=== PATIENT | female | born 1945 | race Caucasian/White ===

== ENCOUNTER → 2016-04-29 | Day surgery (SDC) | payer MEDICARE ==
[~2016-04-29] VITALS: Ht 165.1 cm; Wt 102.1 kg
[~2016-04-29] MED LIST: ACETAMINOPHEN 325 MG TAB PO PRN; AcetaZOLAMIDE 500 MG ER CAP PO ONE; BACL10TA2 PO; BSS with VANC/TOB/EPI for EYE CASES IR ONE; CYCLOPENTOLATE 2% OPHTH SOLN XX ONE; FISH1000 PO; HEALON DUET (HEALON 10MG/ML 0.55ML & HEALON ENDOCOAT 30MG/ML 0.85ML) As Ordered ONE; HEALON DUET (HEALON 10MG/ML 0.55ML & HEALON ENDOCOAT 30MG/ML 0.85ML) XX ONE; LASI20TA PO; LIDO5DIS36 TD; LIDOCAINE 1% SDV 5 ML VIAL As Ordered ONE; LIDOCAINE 1% SDV 5 ML VIAL XX ONE; LIDOCAINE 4% INJ 5 ML AMP OU ONE; LORA-376 PO; MELO15TA4 PO; MIDAZOLAM INJ 2 MG/2 ML VIAL (J2250) As Ordered ONE; MOXIFLOXACIN IN BSS 0.25MG/0.25ML INTRACAMERAL INJ (OR EYE ONLY)(J2280) As Ordered ONE; MOXIFLOXACIN IN BSS 0.25MG/0.25ML INTRACAMERAL INJ (OR EYE ONLY)(J2280) ICAM ONE; OCUVCAP2 PO; OFLOXACIN 0.3 % (OCUFLOX) OPTH SOL 5ML XX ONE; PHENYLEPHRINE 2.5% OPHTH SOL 2ML XX ONE; PLEG15IN SC; POVIDONE-IODINE 5% OPHTH PREP SOL 30ML As Ordered ONE; PROPARACAINE 0.5% OPHTH SOL 15ML OD PRN; TRIAMCINOLONE PRES FR 40 MG/ML 1ML(TRIESENCE)(OR EYE ONLY)(J3300 PER 1MG) As Ordered ONE; TRIAMCINOLONE PRES FR 40 MG/ML 1ML(TRIESENCE)(OR EYE ONLY)(J3300 PER 1MG) IO ONE; TRIMETHOBENZAMIDE 300 MG CAP PO PRN; TROPICAMIDE 1% OPHTH SOLN 2 ML XX ONE; VITA100037 PO; fentaNYL 100 MCG/2 ML INJECTION (J3010) As Ordered ONE
--- NOTE | 2016-04-29 13:31 | REP ---
DATE OF PROCEDURE: 04/29/2016 PREPROCEDURE DIAGNOSIS: Cataract in the right eye. POSTPROCEDURE DIAGNOSIS: Cataract in the right eye. PROCEDURE: Femtosecond laser and phacoemulsification of the intraocular lens with lens implantation right eye. Intraocular lens power used was PCB00, power 14.5 diopter. SURGEON: Natasha Mcneal MD HOUSEKEEPING WORKER: None. ANESTHESIA: Local IV standby. FINDINGS: Cataract of right eye. COMPLICATIONS: None. DESCRIPTION OF PROCEDURE: The patient was brought to the operating room and laid in supine position. A lid speculum was placed, and patient was brought under the femtosecond laser. After the satisfactory placement of the patient interface, primary incision, secondary incision, and arcuate incisions with lens fragmentation was done without any complication per plan. The patients interface was then removed and lid speculum removed. Patient was placed under the microscope. The eye was prepped and draped in a sterile fashion for ophthalmic surgery. Lid speculum was placed. The secondary incision was opened, and EndoCoat was injected into the anterior chamber. The temporal clear corneal incision was then opened and capsulorrhexis removed, followed by hydrodissection. This was followed by phacoemulsification of the lens within the capsular bag. Cortical material was then aspirated, and Healon was injected into the capsular bag. Intraocular lens was then placed. Excess Healon was aspirated. Wound was hydrated. The lid speculum was removed, and patient was returned to the recovery room in stable condition.
[2016-04-29 14:05] VITALS: BP 168/90
== END | disposition home or self-care (01) ==
LOC: M SDC 11:40
PROVIDERS: ATTEND Ophthalmology
DX: H26.9 Unspecified cataract (principal); I10 Essential (primary) hypertension; G47.30 Sleep apnea, unspecified; G35 Multiple sclerosis; Z79.899 Other long term (current) drug therapy
CPT/HCPCS: 66984; J2250; J2280; J3010; J3300; V2632

== ENCOUNTER 2017-07-13 17:00 | Emergency (ER) | payer MEDICARE ==
[2017-07-13 17:44] LABS: BASO % 0.1 % (0.0-1.0); EOS % 0.4 % (0.0-3.0); HEMATOCRIT 39.8 % (36.0-47.0); HEMOGLOBIN 13.1 g/dl (12.0-15.5); IMMATURE GRANULOCYTE % 0.4 % (0-3.0); LYMPH # 0.7 10^3/uL (1.5-4.5); LYMPH % 7.8 % (24.0-44.0); MEAN CORPUSCULAR HEMOGLOBIN 29.8 pg (27.0-33.0); MEAN CORPUSCULAR HGB CONC 32.9 g/dl (32.0-36.5); MEAN CORPUSCULAR VOLUME 90.5 fl (80.0-96.0); MONO # 0.8 10^3/uL (0.0-0.8); MONO % 9.1 % (0.0-5.0); NEUTROPHILS # 7.4 10^3/uL (1.8-7.7); NEUTROPHILS % 82.2 % (36.0-66.0); PLATELET COUNT, AUTOMATED 211 10^3/uL (150-450)
[2017-07-13] MEDS: NS 1,000 ML IV (17:46)
[2017-07-13] MEDS: GI COCKTAIL 50ML BTL(HYOSCYAMINE/MAALOX/LIDOCAINE VISCOUS)(1:3:1) PO (17:46)
[2017-07-13 17:54] LABS: INR 1.49; PROTHROMBIN TIME 18.4 SECONDS (12.4-14.5)
[2017-07-13 18:12] LABS: ALBUMIN 3.6 GM/DL (3.2-5.2); ALBUMIN/GLOBULIN RATIO 1.33 (1.00-1.93); ALT/SGPT 15 U/L (12-78); ANION GAP 8 MEQ/L (8-16); AST/SGOT 8 U/L (7-37); BILIRUBIN,DIRECT 0.2 MG/DL (0.0-0.2); BILIRUBIN,TOTAL 0.6 MG/DL (0.2-1.0); BLOOD UREA NITROGEN 22 MG/DL (7-18); CALCIUM LEVEL 8.7 MG/DL (8.8-10.2); CARBON DIOXIDE LEVEL 29 MEQ/L (21-32); CHLORIDE LEVEL 107 MEQ/L (98-107); CPK CREATINE PHOSPHOKINASE 27 U/L (26-192); CREATININE FOR GFR 0.67 MG/DL (0.55-1.30); GLOMERULAR FILTRATION RATE > 60.0 (>39); GLUCOSE, FASTING 121 MG/DL (70-100); POTASSIUM SERUM 3.8 MEQ/L (3.5-5.1); SODIUM LEVEL 144 MEQ/L (136-145); TOTAL PROTEIN 6.3 GM/DL (6.4-8.2); TROPONIN I < 0.02 NG/ML (< 0.10)
[2017-07-13 18:23] LABS: ALKALINE PHOSPHATASE 85 U/L (45-117); CK-MB VALUE MASS < 1.0 NG/ML (<3.6); NT-PRO BNP 1784 PG/ML (<125)
== END 2017-07-13 19:22 | disposition home or self-care (01) ==
LOC: M ED 17:00
DX: K21.0 Gastro-esophageal reflux disease with esophagitis (principal); R00.0 Tachycardia, unspecified; I10 Essential (primary) hypertension; I48.91 Unspecified atrial fibrillation; E78.5 Hyperlipidemia, unspecified; Z87.891 Personal history of nicotine dependence; Z88.6 Allergy status to analgesic agent; Z79.899 Other long term (current) drug therapy; Z79.01 Long term (current) use of anticoagulants
CPT/HCPCS: 71045

== ENCOUNTER → 2020-01-20 | Outpatient (CLI) | payer MEDICARE ==
[~2020-01-20] MED LIST changes: -ACETAMINOPHEN 325 MG TAB PO PRN; -AcetaZOLAMIDE 500 MG ER CAP PO ONE; -BSS with VANC/TOB/EPI for EYE CASES IR ONE; -CYCLOPENTOLATE 2% OPHTH SOLN XX ONE; +DILT180C78 PO; -HEALON DUET (HEALON 10MG/ML 0.55ML & HEALON ENDOCOAT 30MG/ML 0.85ML) As Ordered ONE; -HEALON DUET (HEALON 10MG/ML 0.55ML & HEALON ENDOCOAT 30MG/ML 0.85ML) XX ONE; -LASI20TA PO; +LASI20TA3 PO; -LIDO5DIS36 TD; +LIDO5DIS41 TD; -LIDOCAINE 1% SDV 5 ML VIAL As Ordered ONE; -LIDOCAINE 1% SDV 5 ML VIAL XX ONE; -LIDOCAINE 4% INJ 5 ML AMP OU ONE; -LORA-376 PO; +LORA0.5T5 PO; +MELO15TA28 PO; -MELO15TA4 PO; -MIDAZOLAM INJ 2 MG/2 ML VIAL (J2250) As Ordered ONE; -MOXIFLOXACIN IN BSS 0.25MG/0.25ML INTRACAMERAL INJ (OR EYE ONLY)(J2280) As Ordered ONE; -MOXIFLOXACIN IN BSS 0.25MG/0.25ML INTRACAMERAL INJ (OR EYE ONLY)(J2280) ICAM ONE; -OFLOXACIN 0.3 % (OCUFLOX) OPTH SOL 5ML XX ONE; -PHENYLEPHRINE 2.5% OPHTH SOL 2ML XX ONE; -POVIDONE-IODINE 5% OPHTH PREP SOL 30ML As Ordered ONE; +PRESCAP6 PO; -PROPARACAINE 0.5% OPHTH SOL 15ML OD PRN; -TRIAMCINOLONE PRES FR 40 MG/ML 1ML(TRIESENCE)(OR EYE ONLY)(J3300 PER 1MG) As Ordered ONE; -TRIAMCINOLONE PRES FR 40 MG/ML 1ML(TRIESENCE)(OR EYE ONLY)(J3300 PER 1MG) IO ONE; -TRIMETHOBENZAMIDE 300 MG CAP PO PRN; -TROPICAMIDE 1% OPHTH SOLN 2 ML XX ONE; -VITA100037 PO; +VITA100067 PO; +XARE20TA PO; -fentaNYL 100 MCG/2 ML INJECTION (J3010) As Ordered ONE
[2020-01-20 15:33] LABS: BASO % 0.5 % (0.0-1.0); EOS # 0.1 10^3/uL (0.0-0.5); EOS % 2.3 % (0.0-3.0); LYMPH # 1.1 10^3/uL (1.5-5.0); LYMPH % 17.9 % (24.0-44.0); MEAN CORPUSCULAR HEMOGLOBIN 30.7 pg (27.0-33.0); MEAN CORPUSCULAR VOLUME 99.1 fl (80.0-96.0); MONO # 0.5 10^3/uL (0.0-0.8); MONO % 8.2 % (0.0-5.0); NEUTROPHILS # 4.4 10^3/uL (1.5-8.5); NEUTROPHILS % 70.5 % (36.0-66.0); PLATELET COUNT, AUTOMATED 202 10^3/uL (150-450); RED BLOOD COUNT 4.24 10^6/uL (4.00-5.40); WHITE BLOOD COUNT 6.2 10^3/uL (4.0-10.0)
[2020-01-20 15:35] LABS: ALBUMIN 3.7 GM/DL (3.2-5.2); ALT/SGPT 13 U/L (12-78); BILIRUBIN,TOTAL 0.4 MG/DL (0.2-1.0); BLOOD UREA NITROGEN 28 MG/DL (7-18); CARBON DIOXIDE LEVEL 31 MEQ/L (21-32); CHLORIDE LEVEL 106 MEQ/L (98-107); CREATININE FOR GFR 0.72 MG/DL (0.55-1.30); GLOMERULAR FILTRATION RATE > 60.0 (>39); GLUCOSE, FASTING 96 MG/DL (70-100); POTASSIUM SERUM 4.2 MEQ/L (3.5-5.1); SODIUM LEVEL 143 MEQ/L (136-145)
[2020-01-20 15:44] LABS: HEPATITIS B SURFACE ANTIBODY NEGATIVE (POSITIVE)
[2020-01-20 15:55] LABS: HEPATITIS B SURFACE ANTIGEN NEGATIVE (NEGATIVE)
== END ==
LOC: M PLALAB 12:52
PROVIDERS: ATTEND Psychiatry & Neurology Neurology
DX: G35 Multiple sclerosis (principal)

== ENCOUNTER 2020-12-14 09:09 | Outpatient (CLI) | payer MEDICARE ==
[~2020-12-14] VITALS: Ht 160 cm; Wt 94.0 kg
[2020-12-14 09:15] VITALS: BP 139/68
[2020-12-14] MEDS ORDERED: diphenhydrAMINE 25MG CAP PO ONE (09:30)
[2020-12-14] MEDS ORDERED: methylPREDNISolone 125MG 2ML VIAL IV ONE (09:30)
[2020-12-14] MEDS ORDERED: OCRELIZUMAB 300 MG in NS 250 ML IV ONE (09:30)
[2020-12-14] MEDS ORDERED: ACETAMINOPHEN TAB 650MG DOSE (2X325MG) PO ONE (09:30)
[2020-12-14 10:20] VITALS: BP 139/71
[2020-12-14 10:50] VITALS: BP 146/77
[2020-12-14 11:20] VITALS: BP 136/68
[2020-12-14 11:50] VITALS: BP 137/68
[2020-12-14 12:50] VITALS: BP 137/65
== END 2020-12-14 13:15 | disposition home or self-care (01) ==
LOC: M INFU 09:09
PROVIDERS: ATTEND Psychiatry & Neurology Neurology
DX: G35 Multiple sclerosis (principal); Z88.6 Allergy status to analgesic agent
CPT/HCPCS: 96365; 96366; J2930

== ENCOUNTER 2020-12-29 08:57 | Outpatient (CLI) | payer MEDICARE ==
[~2020-12-29] VITALS: Ht 160 cm; Wt 94.0 kg
[2020-12-29] MEDS ORDERED: methylPREDNISolone 125MG 2ML VIAL IV ONE (09:00)
[2020-12-29] MEDS ORDERED: OCRELIZUMAB 300 MG in NS 250 ML IV ONE (09:00)
[2020-12-29] MEDS ORDERED: ACETAMINOPHEN TAB 650MG DOSE (2X325MG) PO ONE (09:00)
[2020-12-29] MEDS ORDERED: diphenhydrAMINE 25MG CAP PO ONE (09:00)
[2020-12-29 09:10] VITALS: BP 123/72
[2020-12-29 10:09] VITALS: BP 136/62
[2020-12-29 10:30] VITALS: BP 141/63
[2020-12-29 10:57] VITALS: BP 132/60
[2020-12-29 12:31] VITALS: BP 134/63
== END 2020-12-29 12:35 | disposition home or self-care (01) ==
LOC: M INFU 08:57
PROVIDERS: ATTEND Psychiatry & Neurology Neurology
DX: G35 Multiple sclerosis (principal); Z88.6 Allergy status to analgesic agent
CPT/HCPCS: 96365; 96366; 96375; J2930

== ENCOUNTER 2021-05-29 09:27 | Outpatient (CLI) | payer MEDICARE ==
[~2021-05-29] VITALS: Ht 160 cm; Wt 94.0 kg
[~2021-05-29 09:27] MED LIST changes: +ACETAMINOPHEN TAB 650MG DOSE (2X325MG) PO ONE; +OCRELIZUMAB 600 MG in NS 500 ML IV ONE; +diphenhydrAMINE 25MG CAP PO ONE; +methylPREDNISolone 125MG 2ML VIAL IV ONE
[2021-05-29 09:48] VITALS: BP 136/65
[2021-05-29 11:00] VITALS: BP 141/61
[2021-05-29 11:29] VITALS: BP 129/63
[2021-05-29 12:00] VITALS: BP 138/64
[2021-05-29 12:30] VITALS: BP 124/58
[2021-05-29 14:36] VITALS: BP 138/64
== END 2021-05-29 14:45 | disposition home or self-care (01) ==
LOC: M INFU 09:27
PROVIDERS: ATTEND Psychiatry & Neurology Neurology
DX: G35 Multiple sclerosis (principal); Z88.6 Allergy status to analgesic agent
CPT/HCPCS: 96365; 96366; J2930

== ENCOUNTER 2021-12-28 08:16 | Outpatient (CLI) | payer MEDICARE ==
[~2021-12-28] VITALS: Ht 160 cm; Wt 95.4 kg
[~2021-12-28 08:16] MED LIST changes: -ACETAMINOPHEN TAB 650MG DOSE (2X325MG) PO ONE; -OCRELIZUMAB 600 MG in NS 500 ML IV ONE; -diphenhydrAMINE 25MG CAP PO ONE; -methylPREDNISolone 125MG 2ML VIAL IV ONE
[2021-12-28] MEDS ORDERED: ACETAMINOPHEN TAB 650MG DOSE (2X325MG) PO ONE (08:30)
[2021-12-28] MEDS ORDERED: methylPREDNISolone 125MG 2ML VIAL IV ONE (08:30)
[2021-12-28] MEDS ORDERED: OCRELIZUMAB 600 MG in NS 500 ML IV ONE (08:30)
[2021-12-28] MEDS ORDERED: diphenhydrAMINE 25MG CAP PO ONE (08:30)
[2021-12-28 08:35] VITALS: BP 134/73
[2021-12-28 09:40] VITALS: BP 128/78
[2021-12-28] MEDS ORDERED: ACET650T61 PO (09:43)
[2021-12-28] MEDS ORDERED: PERC5TAB12 PO (09:44)
[2021-12-28 10:10] VITALS: BP 132/64
[2021-12-28 10:40] VITALS: BP 130/74
[2021-12-28 11:10] VITALS: BP 143/77
[2021-12-28 13:55] VITALS: BP 134/64
== END 2021-12-28 13:55 | disposition home or self-care (01) ==
LOC: M INFU 08:16
PROVIDERS: ATTEND Psychiatry & Neurology Neurology
DX: G35 Multiple sclerosis (principal); Z88.6 Allergy status to analgesic agent
CPT/HCPCS: 96365; 96366; J2930

== ENCOUNTER 2022-06-28 08:37 | Outpatient (CLI) | payer MEDICARE ==
[~2022-06-28] VITALS: Ht 160 cm; Wt 95.4 kg
[2022-06-28] VITALS (7 sets, daily range): BP systolic 108–140; BP diastolic 56–74
[~2022-06-28 08:37] MED LIST changes: +ACET650T61 PO; +ACETAMINOPHEN TAB 650MG DOSE (2X325MG) PO ONE; +OCRELIZUMAB 600 MG in NS 500 ML IV ONE; +PERC5TAB12 PO; +diphenhydrAMINE 25MG CAP PO ONE; +methylPREDNISolone 125MG 2ML VIAL IV ONE
== END 2022-06-28 13:25 | disposition home or self-care (01) ==
LOC: M INFU 08:37
PROVIDERS: ATTEND Psychiatry & Neurology Neurology
DX: G35 Multiple sclerosis (principal); Z88.8 Allergy status to other drugs, medicaments and biological substances
CPT/HCPCS: 96365; 96366; 96375; J2930

== ENCOUNTER 2022-12-25 08:13 | Day surgery (SDC) | payer MEDICARE ==
[~2022-12-25] VITALS: Ht 160 cm; Wt 90.2 kg
[~2022-12-25 08:13] MED LIST changes: -ACETAMINOPHEN TAB 650MG DOSE (2X325MG) PO ONE; +ATIV1TAB10 PO; +BSS IRRIG/VANCO(10MG)/TOBRA(5MG)/EPINEPH(1:1000-0.5CC)500ML BAG-ORONLY IR ONE; +CEFUROXIME 1MG/0.1ML INTRACAMERAL INJ As Ordered ONE; +CYCLOPENTOLATE 1% OPHTH SOLN 2ML BTL OS SCH; +KP F1200 PO; +LIDOCAINE 1% SDV 5ML VIAL As Ordered ONE; +LIDOCAINE 3.5 % 1ML OPHTH TOPICAL GEL OU ONE; +MIDAZOLAM INJ 2MG/2ML VIAL As Ordered ONE; -OCRELIZUMAB 600 MG in NS 500 ML IV ONE; +OFLOXACIN 0.3 % (OCUFLOX) OPTH SOL 5ML OS ONE; +PHENYLEPHRINE 10% OPHTH SOL 5ML OS PRN; +PHENYLEPHRINE 2.5% OPHTH SOL 2ML OS SCH; +PRES1CHW PO; +TROPICAMIDE 1% OPHTH SOLN 15ML OS SCH; +VITA100093 PO; -diphenhydrAMINE 25MG CAP PO ONE; +fentaNYL 100 MCG/2 ML INJECTION As Ordered ONE; -methylPREDNISolone 125MG 2ML VIAL IV ONE
[2022-12-25 11:08] VITALS: BP 126/69; TEMP 98; O2SAT 98
== END 2022-12-25 11:08 | disposition home or self-care (01) ==
LOC: M SDC 08:13
PROVIDERS: ATTEND Ophthalmology
DX: H25.12 Age-related nuclear cataract, left eye (principal); I48.91 Unspecified atrial fibrillation; G35 Multiple sclerosis; G47.33 Obstructive sleep apnea (adult) (pediatric); M06.9 Rheumatoid arthritis, unspecified; Z79.01 Long term (current) use of anticoagulants; Z87.891 Personal history of nicotine dependence; Z88.8 Allergy status to other drugs, medicaments and biological substances
CPT/HCPCS: 66984; J0697; J2250; J3010; V2632

== ENCOUNTER 2022-12-27 08:31 | Outpatient (CLI) | payer MEDICARE ==
[~2022-12-27] VITALS: Ht 160 cm; Wt 90.0 kg
[~2022-12-27 08:31] MED LIST changes: -BSS IRRIG/VANCO(10MG)/TOBRA(5MG)/EPINEPH(1:1000-0.5CC)500ML BAG-ORONLY IR ONE; -CEFUROXIME 1MG/0.1ML INTRACAMERAL INJ As Ordered ONE; -CYCLOPENTOLATE 1% OPHTH SOLN 2ML BTL OS SCH; -LIDOCAINE 1% SDV 5ML VIAL As Ordered ONE; -LIDOCAINE 3.5 % 1ML OPHTH TOPICAL GEL OU ONE; -MIDAZOLAM INJ 2MG/2ML VIAL As Ordered ONE; -OFLOXACIN 0.3 % (OCUFLOX) OPTH SOL 5ML OS ONE; -PHENYLEPHRINE 10% OPHTH SOL 5ML OS PRN; -PHENYLEPHRINE 2.5% OPHTH SOL 2ML OS SCH; -TROPICAMIDE 1% OPHTH SOLN 15ML OS SCH; -fentaNYL 100 MCG/2 ML INJECTION As Ordered ONE
[2022-12-27 08:35] VITALS: BP 132/65; O2SAT 98
[2022-12-27] MEDS ORDERED: methylPREDNISolone 125MG 2ML VIAL IV ONE (08:55)
[2022-12-27] MEDS ORDERED: diphenhydrAMINE 25MG CAP PO ONE (08:55)
[2022-12-27] MEDS ORDERED: OCRELIZUMAB 600 MG in NS 500 ML IV ONE (08:55)
[2022-12-27] MEDS ORDERED: ACETAMINOPHEN TAB 650MG DOSE (2X325MG) PO ONE (08:55)
[2022-12-27 09:45] VITALS: BP 139/68; O2SAT 96
[2022-12-27 10:15] VITALS: BP 128/68; O2SAT 98
[2022-12-27 11:00] VITALS: BP 132/71; O2SAT 98
[2022-12-27 13:50] VITALS: BP 147/65; O2SAT 98
== END 2022-12-27 12:00 ==
LOC: M INFU 08:31
PROVIDERS: ATTEND Psychiatry & Neurology Neurology
DX: G35 Multiple sclerosis (principal); Z88.8 Allergy status to other drugs, medicaments and biological substances
CPT/HCPCS: 96365; 96366; 96375; J2930

== ENCOUNTER 2023-08-15 07:55 | Outpatient (CLI) | payer MEDICARE ==
[~2023-08-15] VITALS: Ht 160 cm; Wt 88.0 kg
[2023-08-15 08:00] VITALS: BP_SYST 145; O2SAT 97
[2023-08-15] MEDS: methylPREDNISolone 125MG 2ML VIAL IV ONE (08:24)
[2023-08-15] MEDS: diphenhydrAMINE 25MG CAP PO ONE (08:25)
[2023-08-15] MEDS: ACETAMINOPHEN TAB 650MG DOSE (2X325MG) PO ONE (08:26)
[2023-08-15] MEDS: OCRELIZUMAB 600 MG in NS 500 ML IV ONE (08:39)
[2023-08-15 09:15] VITALS: BP 166/87; O2SAT 100
[2023-08-15 09:45] VITALS: BP 122/69; O2SAT 98
[2023-08-15 10:15] VITALS: BP 155/78; O2SAT 97
[2023-08-15 10:45] VITALS: BP 149/81; O2SAT 98
[2023-08-15 12:55] VITALS: BP 143/61; O2SAT 97
== END 2023-08-15 12:55 ==
LOC: M INFU 07:55
PROVIDERS: ATTEND Psychiatry & Neurology Neurology
DX: G35 Multiple sclerosis (principal); Z88.8 Allergy status to other drugs, medicaments and biological substances
CPT/HCPCS: 96375; 96413; 96415; J2919

== ENCOUNTER 2024-02-27 09:06 | Outpatient (CLI) | payer MEDICARE ==
[~2024-02-27] VITALS: Ht 157.5 cm; Wt 86.0 kg
[2024-02-27] MEDS: methylPREDNISolone 125MG 2ML VIAL IV ONE (09:20)
[2024-02-27] MEDS: ACETAMINOPHEN 325 MG TAB PO ONE (09:20)
[2024-02-27] MEDS: diphenhydrAMINE 25MG CAP PO ONE (09:20)
[2024-02-27 09:30] VITALS: BP 142/75; O2SAT 98
[2024-02-27] MEDS: OCRELIZUMAB 600 MG in NS 500 ML IV ONE (09:52)
[2024-02-27 10:49] VITALS: BP 146/73; O2SAT 98
[2024-02-27 11:00] VITALS: BP 129/60; O2SAT 98
[2024-02-27 11:30] VITALS: BP 128/62; O2SAT 99
[2024-02-27 12:00] VITALS: BP 121/89; O2SAT 100
[2024-02-27 13:49] VITALS: BP 127/68; O2SAT 98
== END 2024-02-27 14:00 ==
LOC: M INFU 09:06
PROVIDERS: ATTEND Psychiatry & Neurology Neurology
DX: G35 Multiple sclerosis (principal); Z88.8 Allergy status to other drugs, medicaments and biological substances
CPT/HCPCS: 96365; 96366; 96375; J2919